=== PATIENT | male | born 1945 | race Caucasian/White ===

== ENCOUNTER 2016-11-24 10:36 | Observation (INO) | payer MEDICARE, OTHER ==
[~2016-11-24] VITALS: Ht 172.7 cm; Wt 115.7 kg
[2016-11-24] VITALS (12 sets, daily range): BP systolic 108–136; BP diastolic 59–76
[2016-11-24] MEDS: IV RINGERS,LACTATED 1000ML 1,000 ML IV SCH (11:29)
[2016-11-24 11:34] LABS: BASO # 0.1 x10^3/uL (0.0-0.2); BASO % 1 % (0-3); EOS % 3 % (0-3); HEMATOCRIT 45.7 % (39.0-53.0); HEMOGLOBIN 15.6 g/dL (13.0-17.5); LYMPH # 2.9 x10^3/uL (1.0-4.8); LYMPH % 33 % (24-48); MEAN CORPUSCULAR HEMOGLOBIN 31 pg (25-35); MEAN CORPUSCULAR HGB CONC 34 g/dL (31-37); MEAN CORPUSCULAR VOLUME 90 fL (79-100); MONO % 9 % (0-9); NEUT % 54 % (31-73); PLATELET COUNT 172 x10^3/uL (140-400); RED BLOOD COUNT 5.08 x10^6/uL (4.30-5.70); RED CELL DISTRIBUTION WIDTH 14.6 % (11.5-14.5); WHITE BLOOD COUNT 8.7 x10^3/uL (4.0-11.0)
[2016-11-24] MEDS ORDERED: PROPOFOL 20 ML IV ONE (11:34)
[2016-11-24] MEDS ORDERED: LIDOCAINE 2% PF Vial for OR 5 ML VIAL. ONE (11:35)
[2016-11-24] MEDS ORDERED: DEXAMETHASONE SOD PHOS 20 MG/5 ML VIAL. ONE (11:35)
[2016-11-24] MEDS ORDERED: ONDANSETRON PF 4 MG/2 ML VIAL. ONE (11:35)
[2016-11-24 11:46] LABS: INR 1.1 (0.8-1.1); PROTHROMBIN TIME PATIENT 13.1 SEC (11.7-14.0)
[2016-11-24 11:47] LABS: CALCIUM 9.1 mg/dL (8.5-10.1); CREATININE 0.9 mg/dL (0.7-1.3); GFR 83.2; POTASSIUM 4.3 mmol/L (3.5-5.1)
[2016-11-24] MEDS ORDERED: fentaNYL PF VIAL 100 MCG/2 ML VIAL ONE (12:04)
[2016-11-24] MEDS ORDERED: fentaNYL PF VIAL 100 MCG/2 ML VIAL IV PRN (12:15)
[2016-11-24] MEDS ORDERED: MORPHINE SULFATE 2 MG/ML DISP.SYRIN. IV PRN ×2 (12:15→13:45)
[2016-11-24] MEDS ORDERED: ONDANSETRON PF 4 MG/2 ML VIAL. IV PRN ×2 (12:15→13:45)
[2016-11-24] MEDS ORDERED: PROCHLORPERAZINE 10 MG/2 ML VIAL. IV PRN (12:15)
[2016-11-24] MEDS ORDERED: IV RINGERS,LACTATED 1000ML 1,000 ML IV SCH (12:15)
[2016-11-24] MEDS ORDERED: LIDOCAINE 1% 1 ML SYRINGE. ID PRN (12:15)
[2016-11-24] MEDS ORDERED: HYDROmorphone 2 MG/ML VIAL IV PRN (12:15)
[2016-11-24 12:16] LABS: BILIRUBIN,URINE NEGATIVE (NEG); GLUCOSE,URINE NEGATIVE (NEG); NITRITE,URINE NEGATIVE (NEG); PROTEIN,URINE NEGATIVE (NEG-TRACE); UROBILINOGEN,URINE 0.2 mg/dL (0.2 mg/dL)
[2016-11-24] MEDS ORDERED: ePHEDrine PF IN SALINE 50 MG/5 ML DISP.SYRIN IV ONE ×3 (12:44→14:28)
[2016-11-24 12:45] LABS: BACTERIA,URINE 0 /HPF (0-FEW); SQUAMOUS EPITHELIAL CELL,UR MOD /LPF
[2016-11-24] MEDS ORDERED: PHENYLEPHRINE in 0.9% NACL PF 1 MG/10 ML DISP.SYRIN. IV ONE (12:58)
[2016-11-24] MEDS ORDERED: SEVOFLURANE 31 TO 60 MINUTES. IH ONE (13:20)
[2016-11-24] MEDS ORDERED: NALOXONE 0.4 MG/ML VIAL. IV PRN (13:45)
[2016-11-24] MEDS ORDERED: diphenhydrAMINE HCL 25 MG CAPSULE PO PRN (13:45)
[2016-11-24] MEDS ORDERED: MAGNESIUM HYDROXIDE 2,400 MG/30 ML ORAL.SUSP. PO PRN (13:45)
[2016-11-24] MEDS ORDERED: 0.9 % SODIUM CHLORIDE 10 ML DISP.SYRIN. IV PRN (13:45)
[2016-11-24] MEDS ORDERED: ACETAMINOPHEN 325 MG TABLET. PO PRN (13:45)
[2016-11-24] MEDS ORDERED: MAG HYDROX/ALUMINUM HYD/SIMETH 30 ML ORAL.SUSP PO PRN (13:45)
--- NOTE | 2016-11-24 13:59 | PDOC ---
BRIEF OPERATIVE NOTE Date: November 24, 2016 Pre-Op Diagnosis BPH Post-Op Diagnosis BPH Procedure Performed Transurethral Resection of Prostate Surgeon Chito Anesthesia Type: General Blood Loss 100cc Specimens Obtained Prostate tissue sent to lab Findings same Complications none Additional Remarks Tolerated well Consult Hospitalist for medical management MARY ANNE PAREDES DO November 24, 2016 13:59
[2016-11-24] MEDS ORDERED: METO25TA9 PO (14:00)
[2016-11-24] MEDS ORDERED: INSU100I13 SQ (14:03)
[2016-11-24] MEDS: fentaNYL PF VIAL 100 MCG/2 ML VIAL IV PRN ×2 (14:29→14:44)
[2016-11-24] MEDS: POTASSIUM CL 20MEQ-0.45% NACL 1,000 ML IV SCH (15:00)
[2016-11-24] MEDS ORDERED: AMLO1CAP8 PO (15:20)
[2016-11-24] MEDS ORDERED: TAMS0.4C2 PO (15:20)
[2016-11-24] MEDS ORDERED: ESOM40CA PO (15:20)
[2016-11-24] MEDS ORDERED: METF-620 PO (15:20)
--- NOTE | 2016-11-24 15:58 | PDOC2 ---
CONSULT Date of Consult Date of Consult DATE: 11/24/16 TIME: 15:57 Reason for Consult Reason for Consult: DM / HTN Referring Physician Referring Physician: DR PAREDES Identification/Chief Complaint Chief Complaint POST SURGERY TURP History of Present Illness Reason for Visit: A 71 Male with hx of HTN, DM, BPH admitted to the hospital for Transurethral Resection of Prostate, IPC is asked to see for medical management. Pt denies any active complaints, pain 6/10, better with medications, no fever, no hematuria. He had urinary retention for long time, diagnosed with BPH. Past Medical History Cardiovascular: HTN Renal/: Other (BPH) Endocrine: Diabetes Past Surgical History Past Surgical History: Other (tURP) Family History Family History BROTHER- PROSTATE CANCER MOTHER A LIVE FATHER Social History No ALCOHOL: rare Current Medications Current Medications Current Medications Ringer's Solution 1,000 ml @ 75 mls/hr [id number] IV Last administered on t 11:29; Start 11/24/16 at 11:30 Propofol 20 ml @ As Directed STK-MED ONCE IV ; Start 11/24/16 at 11:34; Stop at 11:35; Status DC Lidocaine HCl (Lidocaine Pf 2% Vial) 5 ml STK-MED ONCE .ROUTE ; Start 11/24/16 at 11:35; Stop 11/24/16 at 11:36; Status DC Dexamethasone Sodium Phosphate (Decadron) 20 mg STK-MED ONCE .ROUTE ; Start at 11:35; Stop 11/24/16 at 11:36; Status DC Ondansetron HCl (Zofran) 4 mg STK-MED ONCE .ROUTE ; Start 11/24/16 at 11:35; Stop 11/24/16 at 11:36; Status DC Ceftriaxone Sodium 50 ml @ 100 mls/hr 1X PREOP PRN IV PER PROTOCOL; Start at 06:00; Stop 11/25/16 at 05:59 Ceftriaxone Sodium 50 ml @ As Directed STK-MED ONCE IV ; Start 11/24/16 at 11:47 ; Stop 11/24/16 at 11:48; Status DC Fentanyl Citrate (Fentanyl 2ml Vial) 100 mcg STK-MED ONCE .ROUTE ; Start at 12:04; Stop 11/24/16 at 12:05; Status DC Ondansetron HCl (Zofran) 4 mg PRN Q6HRS PRN IV NAUSEA/VOMITING; Start 11/24/16 at 12:15; Stop 11/25/16 at 12:14 Fentanyl Citrate (Fentanyl 2ml Vial) 25 mcg PRN Q5MIN PRN IV MILD PAIN; Start 11/24/16 at 12:15; Stop 11/25/16 at 12:14 Fentanyl Citrate (Fentanyl 2ml Vial) 50 mcg PRN Q5MIN PRN IV MODERATE PAIN Last administered on 11/24/16t 14:44; Start 11/24/16 at 12:15; Stop 11/25/16 at 12:14 Morphine Sulfate 1 mg PRN Q10MIN PRN IV SEVERE PAIN; Start 11/24/16 at 12:15; Stop 11/25/16 at 12:14 Ringer's Solution 1,000 ml @ 30 mls/hr Q24H IV ; Start 11/24/16 at 12:15; Stop 11/25/16 at 00:14 Lidocaine HCl 2 ml PRN 1X PRN ID PRIOR TO IV START; Start 11/24/16 at 12:15; Stop 11/25/16 at 12:14 Hydromorphone HCl (Dilaudid) 0.5 mg PRN Q10MIN PRN IV SEV PAIN, Second choice; Start 11/24/16 at 12:15; Stop 11/25/16 at 12:14 Prochlorperazine Edisylate (Compazine) 5 mg PACU PRN PRN IV NAUSEA, MRX1; Start 11/24/16 at 12:15; Stop 11/25/16 at 12:14 Ephedrine Sulfate 50 mg STK-MED ONCE IV ; Start 11/24/16 at 12:44; Stop at 12:45; Status DC Phenylephrine HCl 1 mg STK-MED ONCE IV ; Start 11/24/16 at 12:58; Stop 11/24/16 at 12:59; Status DC Sevoflurane (Ultane) 30 ml STK-MED ONCE IH ; Start 11/24/16 at 13:20; Stop 11/24 at 13:21; Status DC Ephedrine Sulfate 50 mg STK-MED ONCE IV ; Start 11/24/16 at 13:33; Stop at 13:34; Status DC Al Hydroxide/Mg Hydroxide (Mylanta Plus Xs) 30 ml PRN Q3HRS PRN PO HEARTBURN / GAS; Start 11/24/16 at 13:45 Diphenhydramine HCl (Benadryl) 25 mg PRN Q6HRS PRN PO ITCHING; Start 11/24/16 at 13:45 Naloxone HCl (Narcan) 0.1 mg PRN Q2MIN PRN IV SEE COMMENTS; Start 11/24/16 at 13:45 Sodium Chloride (Normal Saline Flush) 3 ml QSHIFT PRN IV AFTER MEDS AND BLOOD DRAWS; Start 11/24/16 at 13:45 Potassium Chloride/Sodium Chloride 1,000 ml @ 80 mls/hr [id number] IV ; Start at 15:00 Acetaminophen/ Hydrocodone Bitart (Lortab 5/325) 1 tab PRN Q4HRS PRN PO MILD PAIN; Start 11/24/16 at 13:45 Morphine Sulfate 1 mg PRN Q1HR PRN IV PAIN; Start 11/24/16 at 13:45 Acetaminophen (Tylenol) 650 mg PRN Q6HRS PRN PO Headaches, Temp > 101.5F; Start 11/24/16 at 13:45 Ondansetron HCl (Zofran) 4 mg PRN Q6HRS PRN IV NAUESA, 1ST CHOICE; Start at 13:45 Senna/Docusate Sodium (Senna Plus) 1 tab BID PO ; Start 11/24/16 at 21:00 Magnesium Hydroxide (Milk Of Magnesia) 2,400 mg PRN Q12HR PRN PO CONSTIPATION; Start 11/24/16 at 13:45 Ceftriaxone Sodium 1 gm/ Sodium Chloride 50 ml @ 100 mls/hr Q24H IV ; Start at 09:00 Ephedrine Sulfate 50 mg STK-MED ONCE IV ; Start 11/24/16 at 14:28; Stop at 14:29; Status DC Metformin HCl (Glucophage) 1,000 mg BIDWMEALS PO ; Start 11/24/16 at 17:00; Status UNV Metoprolol Succinate (Toprol Xl) 25 mg BID PO ; Start 11/24/16 at 21:00; Status UNV Tamsulosin HCl (Flomax) 0.4 mg HS PO ; Start 11/24/16 at 21:00; Status UNV Non-Formulary Medication 1 cap DAILY PO ; Start 11/25/16 at 09:00; Status UNV Non-Formulary Medication 1 cap BID PO ; Start 11/24/16 at 21:00; Status UNV Non-Formulary Medication 10 unit QHS SQ ; Start 11/24/16 at 21:00; Status UNV Active Scripts Active Reported Tamsulosin Hcl 0.4 Mg Cap.er.24h 0.4 Mg PO HS Metformin Hcl 1,000 Mg Tablet 1,000 Mg PO BIDWMEALS Amlodipine-Benazepril 5-10 Mg (Amlodipine Besylate/Benazepril) 1 Each Capsule 1 Cap PO DAILY Nexium Capsule (Esomeprazole Magnesium) 40 Mg Capsule.dr 1 Cap PO BID Lantus Solostar (Insulin Glargine,Hum.rec.anlog) 100 Unit/1 Ml Insuln.pen 10 Unit SQ QHS Metoprolol Succinate ( Xl ) (Metoprolol Succinate) 25 Mg Tab.er.24h 25 Mg PO BID Allergies Allergies: Coded Allergies: Sulfa (Sulfonamide Antibiotics) (Verified Allergy, Severe, MARINA SP SYNDROME, 11/14/16) ampicillin (Verified Allergy, Severe, MARINA SP SYNDROME, 11/14/16) trimethoprim (Verified Allergy, Severe, MARINA SP SYNDROME, 11/14/16) cephalexin (Verified Allergy, Intermediate, 11/24/16) ciprofloxacin (Verified Allergy, Intermediate, MARINA SP SYNDROME, 11/14/16) sulfamethoxazole (Verified Allergy, Intermediate, STVEN SP SYNDROME, 11/14/16) ROS Review of System CONSTITUTIONAL: No fever or chills EYES: No recent changes SKIN: No rash or itching CARDIOVASCULAR: No chest pain, syncope, palpitations, or edema RESPIRATORY: No SOB or cough GASTROINTESTINAL: No nausea, vomiting or abdominal pain NEUROLOGICAL: No headaches or weakness ENDOCRINE: No cold or heat intolerance GENITOURINARY: RETENTION OF URINE MUSCULOSKELETAL: No back pain or joint pain LYMPHATICS: No enlarged lymph nodes PSYCHIATRIC: No anxiety or depression Physical Exam Physical Exam GENERAL: No apparent distress. Alert and oriented. HEENT: Head normocephalic, atraumatic. NECK: Supple LUNGS: Clear to auscultation. HEART: RRR, S1, S2 present, pulses intact ABDOMEN: Soft, positive bowel sounds. EXTREMITIES: No cyanosis or edema. NEUROLOGIC: Normal speech, normal tone PSYCHIATRIC: Normal affect, normal mood. SKIN: No ulceration. Vitals VITALS Vital Signs Date Time Temp Pulse Resp B/P (MAP) Pulse Ox O2 Delivery O2 Flow Rate FiO2 11/24/16 14:44 2 Room Air 11/24/16 14:29 94 2.0 11/24/16 14:28 97.4 96 116/51 97.4 Labs Labs Laboratory Tests Test 11/24/16 11:20 11/24/16 12:00 11/24/16 14:01 White Blood Count 8.7 x10^3/uL (4.0-11.0) Red Blood Count 5.08 x10^6/uL (4.30-5.70) Hemoglobin 15.6 g/dL (13.0-17.5) Hematocrit 45.7 % (39.0-53.0) Mean Corpuscular Volume 90 fL (79-100) Mean Corpuscular Hemoglobin 31 pg (25-35) Mean Corpuscular Hemoglobin Concent 34 g/dL (31-37) Red Cell Distribution Width 14.6 % (11.5-14.5) Platelet Count 172 x10^3/uL (140-400) Neutrophils (%) (Auto) 54 % (31-73) Lymphocytes (%) (Auto) 33 % (24-48) Monocytes (%) (Auto) 9 % (0-9) Eosinophils (%) (Auto) 3 % (0-3) Basophils (%) (Auto) 1 % (0-3) Neutrophils # (Auto) 4.7 x10^3uL (1.8-7.7) Lymphocytes # (Auto) 2.9 x10^3/uL (1.0-4.8) Monocytes # (Auto) 0.7 x10^3/uL (0.0-1.1) Eosinophils # (Auto) 0.2 x10^3/uL (0.0-0.7) Basophils # (Auto) 0.1 x10^3/uL (0.0-0.2) Prothrombin Time 13.1 SEC (11.7-14.0) Prothromb Time International Ratio 1.1 (0.8-1.1) Activated Partial Thromboplast Time 32 SEC (24-38) Sodium Level 141 mmol/L (136-145) Potassium Level 4.3 mmol/L (3.5-5.1) Chloride Level 103 mmol/L (98-107) Carbon Dioxide Level 28 mmol/L (21-32) Anion Gap 10 (6-14) Blood Urea Nitrogen 16 mg/dL (8-26) Creatinine 0.9 mg/dL (0.7-1.3) Estimated GFR (Cockcroft-Gault) 83.2 Glucose Level 122 mg/dL (70-99) Calcium Level 9.1 mg/dL (8.5-10.1) Urine Collection Type Unknown Urine Color Yellow Urine Clarity Clear Urine pH 6.0 Urine Specific [place] 1.010 Urine Protein Negative mg/dL (NEG-TRACE) Urine Glucose (UA) Negative mg/dL (NEG) Urine Ketones (Stick) Negative mg/dL (NEG) Urine Blood Negative (NEG) Urine Nitrite Negative (NEG) Urine Bilirubin Negative (NEG) Urine Urobilinogen Dipstick 0.2 mg/dL (0.2 mg/dL) Urine Leukocyte Esterase Trace (NEG) Urine RBC 1-2 /HPF (0-2) Urine WBC 1-4 /HPF (0-4) Urine Squamous Epithelial Cells Mod /LPF Urine Bacteria 0 /HPF (0-FEW) Glucose (Fingerstick) 124 mg/dL (70-99) Laboratory Tests Test 11/24/16 11:20 11/24/16 12:00 11/24/16 14:01 White Blood Count 8.7 x10^3/uL (4.0-11.0) Red Blood Count 5.08 x10^6/uL (4.30-5.70) Hemoglobin 15.6 g/dL (13.0-17.5) Hematocrit 45.7 % (39.0-53.0) Mean Corpuscular Volume 90 fL (79-100) Mean Corpuscular Hemoglobin 31 pg (25-35) Mean Corpuscular Hemoglobin Concent 34 g/dL (31-37) Red Cell Distribution Width 14.6 % (11.5-14.5) Platelet Count 172 x10^3/uL (140-400) Neutrophils (%) (Auto) 54 % (31-73) Lymphocytes (%) (Auto) 33 % (24-48) Monocytes (%) (Auto) 9 % (0-9) Eosinophils (%) (Auto) 3 % (0-3) Basophils (%) (Auto) 1 % (0-3) Neutrophils # (Auto) 4.7 x10^3uL (1.8-7.7) Lymphocytes # (Auto) 2.9 x10^3/uL (1.0-4.8) Monocytes # (Auto) 0.7 x10^3/uL (0.0-1.1) Eosinophils # (Auto) 0.2 x10^3/uL (0.0-0.7) Basophils # (Auto) 0.1 x10^3/uL (0.0-0.2) Prothrombin Time 13.1 SEC (11.7-14.0) Prothromb Time International Ratio 1.1 (0.8-1.1) Activated Partial Thromboplast Time 32 SEC (24-38) Sodium Level 141 mmol/L (136-145) Potassium Level 4.3 mmol/L (3.5-5.1) Chloride Level 103 mmol/L (98-107) Carbon Dioxide Level 28 mmol/L (21-32) Anion Gap 10 (6-14) Blood Urea Nitrogen 16 mg/dL (8-26) Creatinine 0.9 mg/dL (0.7-1.3) Estimated GFR (Cockcroft-Gault) 83.2 Glucose Level 122 mg/dL (70-99) Calcium Level 9.1 mg/dL (8.5-10.1) Urine Collection Type Unknown Urine Color Yellow Urine Clarity Clear Urine pH 6.0 Urine Specific [place] 1.010 Urine Protein Negative mg/dL (NEG-TRACE) Urine Glucose (UA) Negative mg/dL (NEG) Urine Ketones (Stick) Negative mg/dL (NEG) Urine Blood Negative (NEG) Urine Nitrite Negative (NEG) Urine Bilirubin Negative (NEG) Urine Urobilinogen Dipstick 0.2 mg/dL (0.2 mg/dL) Urine Leukocyte Esterase Trace (NEG) Urine RBC 1-2 /HPF (0-2) Urine WBC 1-4 /HPF (0-4) Urine Squamous Epithelial Cells Mod /LPF Urine Bacteria 0 /HPF (0-FEW) Glucose (Fingerstick) 124 mg/dL (70-99) Assessment/Plan Assessment/Plan BPH s/p Transurethral Resection of Prostate HTN DM 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 continue current care IV Rocephin IV hydration SSI for hyperglycemia Post surgical care. labs reviwed, Aguilar catheter DC plans based on Urology input LOBO MORRIS MD November 24, 2016 15:57
[2016-11-24] MEDS ORDERED: DEXTROSE 50% 25 GM / 50ML DISP.SYRIN. IV PRN (16:00)
[2016-11-24] MEDS: PANTOPRAZOLE 40 MG TABLET.DR. PO SCH (16:30)
[2016-11-24] MEDS: INSULIN ASPART 300 UNITS/3 ML INSULN.PEN SQ SCH (17:31)
--- NOTE | 2016-11-24 19:10 | OP ---
DATE OF SURGERY: 11/24/2016 PREOPERATIVE DIAGNOSIS: Benign prostatic hyperplasia, difficulty voiding. POSTOPERATIVE DIAGNOSIS: Benign prostatic hyperplasia, difficulty voiding. PROCEDURE: Cystoscopy, transurethral resection of prostate. SURGEON: Mary Anne Dale DO. ANESTHESIA: General. ESTIMATED BLOOD LOSS: Less than 100 mL. DRAINS: A 22-Guy[place] 3-way Aguilar catheter to continuous bladder irrigation. INDICATIONS AND JUDGMENT: This is a 71-year-old male who was experiencing severe nocturia and urinary frequency in spite of medical therapy. He underwent cystoscopy in the office, was found to have an obstructing prostate gland. Treatment options were explained to the patient and it was his decision to proceed with transurethral resection of the prostate. DESCRIPTION OF PROCEDURE: The patient was preloaded with 1 gram of Rocephin. He was taken to the operating room and placed on the operating room table in a supine position. He was given a general anesthetic and then placed in a dorsolithotomy position using Brenden stirrups. He was prepped and draped. Rigid cystoscopy was performed. The urethra was normal course and caliber. Prostate fossa was visualized. He has a 25 gram prostate trilobar hyperplasia with visual obstruction of bladder outlet. The scope was advanced into the bladder. The bladder was carefully examined. There was no evidence of tumor calculi. He had mild bladder wall trabeculation. The ureteral orifices were normal bilaterally. A 24-Guyanese resectoscope sheath was then introduced into the urethra and into the bladder using a Cesar obturator. Following that an Best resectoscope was utilized. Prostate resection was begun at the bladder neck and the adenomatous tissue was resected down to the capsular fibers of the prostate in a circumferential manner. Bleeding vessels were coagulated with a resectoscope loop. The resectoscope was then moved to mid prostate fossa and using the same technique, the adenomatous tissue was resected down to the capsular fibers of the prostate in a circumferential manner. Bleeding vessels were coagulated with resectoscope loop. The third and final stage of the resection was carried out at the apex. Careful attention directed to the external sphincter into the verumontanum. This was not to harm these structures. The adenomatous tissue was then resected down to the capsular fibers of the prostate. I then opened the bladder neck. Using a Addison knife and incision was made the 7 o'clock and 4 o'clock positions opening the bladder neck. This opened the prostatic fossa satisfactorily. Most of the adenomatous obstructing tissue had been resected. The prostate chips were removed from the bladder using Valeria evacuator. Hemostasis was satisfactory. Therefore, the instruments were removed. Then, a well lubricated 22-Guyanese 3-way Aguilar catheter was advanced into the urethra and into the bladder. The 20 mL balloon was filled and this was connected to continuous bladder irrigation. The patient tolerated the procedure well and was sent to recovery room in satisfactory condition with his Aguilar catheter connected to continuous bladder irrigation. MARY ANNE DALE DO DR: Rik JOB#: [id number] / [id number]
[2016-11-24] MEDS: SENNOSIDES/DOCUSATE 8.6/50MG TABLET. PO SCH (20:56)
[2016-11-24] MEDS: METOPROLOL SUCC 24HR ER 25 MG TAB.ER.24H. PO SCH (20:58)
[2016-11-24] MEDS ORDERED: TAMSULOSIN 0.4 MG CAP.ER.24H. PO SCH (21:00)
[2016-11-24] MEDS ORDERED: INSULIN DETEMIR 300 UNITS/3 ML INSULN.PEN. SQ SCH ×2 (21:00)
[2016-11-25] MEDS: IV RINGERS,LACTATED 1000ML 1,000 ML IV SCH (00:50)
[2016-11-25] MEDS: POTASSIUM CL 20MEQ-0.45% NACL 1,000 ML IV SCH (02:06)
[2016-11-25] MEDS: HYDROcodone/APAP 5/325MG 1 TAB TABLET PO PRN ×3 (02:06→12:35)
[2016-11-25 03:36] VITALS: BP 115/59
[2016-11-25 04:12] LABS: BASO # 0.1 x10^3/uL (0.0-0.2); BASO % 1 % (0-3); EOS % 1 % (0-3); HEMATOCRIT 44.5 % (39.0-53.0); HEMOGLOBIN 14.7 g/dL (13.0-17.5); LYMPH # 1.6 x10^3/uL (1.0-4.8); LYMPH % 15 % (24-48); MEAN CORPUSCULAR HEMOGLOBIN 30 pg (25-35); MEAN CORPUSCULAR HGB CONC 33 g/dL (31-37); MEAN CORPUSCULAR VOLUME 92 fL (79-100); MONO % 6 % (0-9); NEUT % 78 % (31-73); PLATELET COUNT 162 x10^3/uL (140-400); RED BLOOD COUNT 4.83 x10^6/uL (4.30-5.70); RED CELL DISTRIBUTION WIDTH 14.7 % (11.5-14.5)
[2016-11-25 04:36] LABS: CALCIUM 8.6 mg/dL (8.5-10.1); CREATININE 0.9 mg/dL (0.7-1.3); GFR 83.2; POTASSIUM 4.8 mmol/L (3.5-5.1)
[2016-11-25 07:00] VITALS: BP 121/60
[2016-11-25] MEDS: PANTOPRAZOLE 40 MG TABLET.DR. PO SCH ×2 (07:20→16:19)
[2016-11-25] MEDS: INSULIN ASPART 300 UNITS/3 ML INSULN.PEN SQ SCH ×2 (08:00→13:04)
[2016-11-25] MEDS: SENNOSIDES/DOCUSATE 8.6/50MG TABLET. PO SCH (08:28)
[2016-11-25] MEDS: METOPROLOL SUCC 24HR ER 25 MG TAB.ER.24H. PO SCH (08:31)
[2016-11-25] MEDS ORDERED: amLODIPine BESYLATE 5 MG TABLET PO SCH (09:00)
[2016-11-25 11:00] VITALS: BP 126/62
--- NOTE | 2016-11-25 13:15 | PDOC ---
Provider Note Provider Note Urology POD# 1 No complaints, vitals and lab are good Urine mostly ul today Plan: catheter removed, patient placed on 6 bottle routine will monitor voiding and urine color to make decision if he can go home later today. Has some bleeding from distal urethra from stricture that was dilated at time of surgery which should stop with some mild pressure. MARY ANNE PAREDES DO November 25, 2016 13:15
--- NOTE | 2016-11-25 14:00 | PDOC ---
PROGRESS NOTES Chief Complaint Chief Complaint BPH s/p Transurethral Resection of Prostate HTN DM Insulin dependant History of Present Illness History of Present Illness CBI pain control continue current care IV hydration SSI for hyperglycemia DC plans Urology Vitals Vitals Vital Signs Date Time Temp Pulse Resp B/P (MAP) Pulse Ox O2 Delivery O2 Flow Rate FiO2 11/25/16 12:35 Room Air 11/25/16 11:00 97.7 71 20 126/62 (83) 95 97.7 11/24/16 19:05 2.0 Physical Exam General: Alert, Oriented X3, Cooperative, No acute distress Heart: Regular rate, No murmurs Lungs: Clear Abdomen: Normal bowel sounds, Soft Extremities: No clubbing, No cyanosis Skin: No rashes, No breakdown Labs LABS Laboratory Tests Test 11/24/16 14:01 11/24/16 16:13 11/24/16 20:52 11/25/16 03:59 Glucose (Fingerstick) 124 mg/dL (70-99) 166 mg/dL (70-99) 229 mg/dL (70-99) White Blood Count 11.0 x10^3/uL (4.0-11.0) Red Blood Count 4.83 x10^6/uL (4.30-5.70) Hemoglobin 14.7 g/dL (13.0-17.5) Hematocrit 44.5 % (39.0-53.0) Mean Corpuscular Volume 92 fL (79-100) Mean Corpuscular Hemoglobin 30 pg (25-35) Mean Corpuscular Hemoglobin Concent 33 g/dL (31-37) Red Cell Distribution Width 14.7 % (11.5-14.5) Platelet Count 162 x10^3/uL (140-400) Neutrophils (%) (Auto) 78 % (31-73) Lymphocytes (%) (Auto) 15 % (24-48) Monocytes (%) (Auto) 6 % (0-9) Eosinophils (%) (Auto) 1 % (0-3) Basophils (%) (Auto) 1 % (0-3) Neutrophils # (Auto) 8.6 x10^3uL (1.8-7.7) Lymphocytes # (Auto) 1.6 x10^3/uL (1.0-4.8) Monocytes # (Auto) 0.7 x10^3/uL (0.0-1.1) Eosinophils # (Auto) 0.1 x10^3/uL (0.0-0.7) Basophils # (Auto) 0.1 x10^3/uL (0.0-0.2) Sodium Level 138 mmol/L (136-145) Potassium Level 4.8 mmol/L (3.5-5.1) Chloride Level 104 mmol/L (98-107) Carbon Dioxide Level 23 mmol/L (21-32) Anion Gap 11 (6-14) Blood Urea Nitrogen 13 mg/dL (8-26) Creatinine 0.9 mg/dL (0.7-1.3) Estimated GFR (Cockcroft-Gault) 83.2 Glucose Level 188 mg/dL (70-99) Calcium Level 8.6 mg/dL (8.5-10.1) Test 11/25/16 07:47 11/25/16 11:32 Glucose (Fingerstick) 129 mg/dL (70-99) 152 mg/dL (70-99) Review of Systems Review of Systems no n.v.d Comment Review of Relevant I have reviewed the following items juliette (where applicable) has been applied. Labs Laboratory Tests Test 11/24/16 11:20 11/24/16 12:00 11/24/16 14:01 11/24/16 16:13 White Blood Count 8.7 x10^3/uL (4.0-11.0) Red Blood Count 5.08 x10^6/uL (4.30-5.70) Hemoglobin 15.6 g/dL (13.0-17.5) Hematocrit 45.7 % (39.0-53.0) Mean Corpuscular Volume 90 fL (79-100) Mean Corpuscular Hemoglobin 31 pg (25-35) Mean Corpuscular Hemoglobin Concent 34 g/dL (31-37) Red Cell Distribution Width 14.6 % (11.5-14.5) Platelet Count 172 x10^3/uL (140-400) Neutrophils (%) (Auto) 54 % (31-73) Lymphocytes (%) (Auto) 33 % (24-48) Monocytes (%) (Auto) 9 % (0-9) Eosinophils (%) (Auto) 3 % (0-3) Basophils (%) (Auto) 1 % (0-3) Neutrophils # (Auto) 4.7 x10^3uL (1.8-7.7) Lymphocytes # (Auto) 2.9 x10^3/uL (1.0-4.8) Monocytes # (Auto) 0.7 x10^3/uL (0.0-1.1) Eosinophils # (Auto) 0.2 x10^3/uL (0.0-0.7) Basophils # (Auto) 0.1 x10^3/uL (0.0-0.2) Prothrombin Time 13.1 SEC (11.7-14.0) Prothromb Time International Ratio 1.1 (0.8-1.1) Activated Partial Thromboplast Time 32 SEC (24-38) Sodium Level 141 mmol/L (136-145) Potassium Level 4.3 mmol/L (3.5-5.1) Chloride Level 103 mmol/L (98-107) Carbon Dioxide Level 28 mmol/L (21-32) Anion Gap 10 (6-14) Blood Urea Nitrogen 16 mg/dL (8-26) Creatinine 0.9 mg/dL (0.7-1.3) Estimated GFR (Cockcroft-Gault) 83.2 Glucose Level 122 mg/dL (70-99) Calcium Level 9.1 mg/dL (8.5-10.1) Urine Collection Type Unknown Urine Color Yellow Urine Clarity Clear Urine pH 6.0 Urine Specific [place] 1.010 Urine Protein Negative mg/dL (NEG-TRACE) Urine Glucose (UA) Negative mg/dL (NEG) Urine Ketones (Stick) Negative mg/dL (NEG) Urine Blood Negative (NEG) Urine Nitrite Negative (NEG) Urine Bilirubin Negative (NEG) Urine Urobilinogen Dipstick 0.2 mg/dL (0.2 mg/dL) Urine Leukocyte Esterase Trace (NEG) Urine RBC 1-2 /HPF (0-2) Urine WBC 1-4 /HPF (0-4) Urine Squamous Epithelial Cells Mod /LPF Urine Bacteria 0 /HPF (0-FEW) Glucose (Fingerstick) 124 mg/dL (70-99) 166 mg/dL (70-99) Test 11/24/16 20:52 11/25/16 03:59 11/25/16 07:47 11/25/16 11:32 Glucose (Fingerstick) 229 mg/dL (70-99) 129 mg/dL (70-99) 152 mg/dL (70-99) White Blood Count 11.0 x10^3/uL (4.0-11.0) Red Blood Count 4.83 x10^6/uL (4.30-5.70) Hemoglobin 14.7 g/dL (13.0-17.5) Hematocrit 44.5 % (39.0-53.0) Mean Corpuscular Volume 92 fL (79-100) Mean Corpuscular Hemoglobin 30 pg (25-35) Mean Corpuscular Hemoglobin Concent 33 g/dL (31-37) Red Cell Distribution Width 14.7 % (11.5-14.5) Platelet Count 162 x10^3/uL (140-400) Neutrophils (%) (Auto) 78 % (31-73) Lymphocytes (%) (Auto) 15 % (24-48) Monocytes (%) (Auto) 6 % (0-9) Eosinophils (%) (Auto) 1 % (0-3) Basophils (%) (Auto) 1 % (0-3) Neutrophils # (Auto) 8.6 x10^3uL (1.8-7.7) Lymphocytes # (Auto) 1.6 x10^3/uL (1.0-4.8) Monocytes # (Auto) 0.7 x10^3/uL (0.0-1.1) Eosinophils # (Auto) 0.1 x10^3/uL (0.0-0.7) Basophils # (Auto) 0.1 x10^3/uL (0.0-0.2) Sodium Level 138 mmol/L (136-145) Potassium Level 4.8 mmol/L (3.5-5.1) Chloride Level 104 mmol/L (98-107) Carbon Dioxide Level 23 mmol/L (21-32) Anion Gap 11 (6-14) Blood Urea Nitrogen 13 mg/dL (8-26) Creatinine 0.9 mg/dL (0.7-1.3) Estimated GFR (Cockcroft-Gault) 83.2 Glucose Level 188 mg/dL (70-99) Calcium Level 8.6 mg/dL (8.5-10.1) Laboratory Tests Test 11/24/16 14:01 11/24/16 16:13 11/24/16 20:52 11/25/16 03:59 Glucose (Fingerstick) 124 mg/dL (70-99) 166 mg/dL (70-99) 229 mg/dL (70-99) White Blood Count 11.0 x10^3/uL (4.0-11.0) Red Blood Count 4.83 x10^6/uL (4.30-5.70) Hemoglobin 14.7 g/dL (13.0-17.5) Hematocrit 44.5 % (39.0-53.0) Mean Corpuscular Volume 92 fL (79-100) Mean Corpuscular Hemoglobin 30 pg (25-35) Mean Corpuscular Hemoglobin Concent 33 g/dL (31-37) Red Cell Distribution Width 14.7 % (11.5-14.5) Platelet Count 162 x10^3/uL (140-400) Neutrophils (%) (Auto) 78 % (31-73) Lymphocytes (%) (Auto) 15 % (24-48) Monocytes (%) (Auto) 6 % (0-9) Eosinophils (%) (Auto) 1 % (0-3) Basophils (%) (Auto) 1 % (0-3) Neutrophils # (Auto) 8.6 x10^3uL (1.8-7.7) Lymphocytes # (Auto) 1.6 x10^3/uL (1.0-4.8) Monocytes # (Auto) 0.7 x10^3/uL (0.0-1.1) Eosinophils # (Auto) 0.1 x10^3/uL (0.0-0.7) Basophils # (Auto) 0.1 x10^3/uL (0.0-0.2) Sodium Level 138 mmol/L (136-145) Potassium Level 4.8 mmol/L (3.5-5.1) Chloride Level 104 mmol/L (98-107) Carbon Dioxide Level 23 mmol/L (21-32) Anion Gap 11 (6-14) Blood Urea Nitrogen 13 mg/dL (8-26) Creatinine 0.9 mg/dL (0.7-1.3) Estimated GFR (Cockcroft-Gault) 83.2 Glucose Level 188 mg/dL (70-99) Calcium Level 8.6 mg/dL (8.5-10.1) Test 11/25/16 07:47 11/25/16 11:32 Glucose (Fingerstick) 129 mg/dL (70-99) 152 mg/dL (70-99) Microbiology 11/24/16 Urine Culture - Preliminary, Resulted 11/24/16 Urine Culture Result 1 (KELTON) - Preliminary, Resulted Medications Current Medications Ringer's Solution 1,000 ml @ 75 mls/hr [id number] IV Last administered on t 11:29; Start 11/24/16 at 11:30 Propofol 20 ml @ As Directed STK-MED ONCE IV ; Start 11/24/16 at 11:34; Stop at 11:35; Status DC Lidocaine HCl (Lidocaine Pf 2% Vial) 5 ml STK-MED ONCE .ROUTE ; Start 11/24/16 at 11:35; Stop 11/24/16 at 11:36; Status DC Dexamethasone Sodium Phosphate (Decadron) 20 mg STK-MED ONCE .ROUTE ; Start at 11:35; Stop 11/24/16 at 11:36; Status DC Ondansetron HCl (Zofran) 4 mg STK-MED ONCE .ROUTE ; Start 11/24/16 at 11:35; Stop 11/24/16 at 11:36; Status DC Ceftriaxone Sodium 50 ml @ 100 mls/hr 1X PREOP PRN IV PER PROTOCOL; Start at 06:00; Stop 11/25/16 at 05:59; Status DC Ceftriaxone Sodium 50 ml @ As Directed STK-MED ONCE IV ; Start 11/24/16 at 11:47 ; Stop 11/24/16 at 11:48; Status DC Fentanyl Citrate (Fentanyl 2ml Vial) 100 mcg STK-MED ONCE .ROUTE ; Start at 12:04; Stop 11/24/16 at 12:05; Status DC Ondansetron HCl (Zofran) 4 mg PRN Q6HRS PRN IV NAUSEA/VOMITING; Start 11/24/16 at 12:15; Stop 11/25/16 at 12:14; Status DC Fentanyl Citrate (Fentanyl 2ml Vial) 25 mcg PRN Q5MIN PRN IV MILD PAIN; Start 11/24/16 at 12:15; Stop 11/25/16 at 12:14; Status DC Fentanyl Citrate (Fentanyl 2ml Vial) 50 mcg PRN Q5MIN PRN IV MODERATE PAIN Last administered on 11/24/16t 14:44; Start 11/24/16 at 12:15; Stop 11/25/16 at 12:14; Status DC Morphine Sulfate 1 mg PRN Q10MIN PRN IV SEVERE PAIN; Start 11/24/16 at 12:15; Stop 11/25/16 at 12:14; Status DC Ringer's Solution 1,000 ml @ 30 mls/hr Q24H IV ; Start 11/24/16 at 12:15; Stop 11/25/16 at 00:14; Status DC Lidocaine HCl 2 ml PRN 1X PRN ID PRIOR TO IV START; Start 11/24/16 at 12:15; Stop 11/25/16 at 12:14; Status DC Hydromorphone HCl (Dilaudid) 0.5 mg PRN Q10MIN PRN IV SEV PAIN, Second choice; Start 11/24/16 at 12:15; Stop 11/25/16 at 12:14; Status DC Prochlorperazine Edisylate (Compazine) 5 mg PACU PRN PRN IV NAUSEA, MRX1; Start 11/24/16 at 12:15; Stop 11/25/16 at 12:14; Status DC Ephedrine Sulfate 50 mg STK-MED ONCE IV ; Start 11/24/16 at 12:44; Stop at 12:45; Status DC Phenylephrine HCl 1 mg STK-MED ONCE IV ; Start 11/24/16 at 12:58; Stop 11/24/16 at 12:59; Status DC Sevoflurane (Ultane) 30 ml STK-MED ONCE IH ; Start 11/24/16 at 13:20; Stop 11/24 at 13:21; Status DC Ephedrine Sulfate 50 mg STK-MED ONCE IV ; Start 11/24/16 at 13:33; Stop at 13:34; Status DC Al Hydroxide/Mg Hydroxide (Mylanta Plus Xs) 30 ml PRN Q3HRS PRN PO HEARTBURN / GAS; Start 11/24/16 at 13:45 Diphenhydramine HCl (Benadryl) 25 mg PRN Q6HRS PRN PO ITCHING; Start 11/24/16 at 13:45 Naloxone HCl (Narcan) 0.1 mg PRN Q2MIN PRN IV SEE COMMENTS; Start 11/24/16 at 13:45 Sodium Chloride (Normal Saline Flush) 3 ml QSHIFT PRN IV AFTER MEDS AND BLOOD DRAWS; Start 11/24/16 at 13:45 Potassium Chloride/Sodium Chloride 1,000 ml @ 80 mls/hr [id number] IV Last administered on 11/25/16 02:06; Start 11/24/16 at 15:00 Acetaminophen/ Hydrocodone Bitart (Lortab 5/325) 1 tab PRN Q4HRS PRN PO MILD PAIN Last administered on 11/25/16 12:35; Start 11/24/16 at 13:45 Morphine Sulfate 1 mg PRN Q1HR PRN IV PAIN Last administered on 11/24/16 18:34 ; Start 11/24/16 at 13:45 Acetaminophen (Tylenol) 650 mg PRN Q6HRS PRN PO Headaches, Temp > 101.5F; Start 11/24/16 at 13:45 Ondansetron HCl (Zofran) 4 mg PRN Q6HRS PRN IV NAUESA, 1ST CHOICE; Start at 13:45 Senna/Docusate Sodium (Senna Plus) 1 tab BID PO Last administered on 11/25/16 08:28; Start 11/24/16 at 21:00 Magnesium Hydroxide (Milk Of Magnesia) 2,400 mg PRN Q12HR PRN PO CONSTIPATION; Start 11/24/16 at 13:45 Ceftriaxone Sodium 1 gm/ Sodium Chloride 50 ml @ 100 mls/hr Q24H IV Last administered on 11/25/16 08:34; Start 11/25/16 at 09:00 Ephedrine Sulfate 50 mg STK-MED ONCE IV ; Start 11/24/16 at 14:28; Stop at 14:29; Status DC Metformin HCl (Glucophage) 1,000 mg BIDWMEALS PO Last administered on 08:28; Start 11/24/16 at 17:00 Metoprolol Succinate (Toprol Xl) 25 mg BID PO Last administered on 11/25/16 08 :31; Start 11/24/16 at 21:00 Tamsulosin HCl (Flomax) 0.4 mg HS PO Last administered on 11/24/16 20:56; Start 11/24/16 at 21:00 Amlodipine Besylate (Norvasc) 5 mg DAILY PO Last administered on 11/25/16 08: 31; Start 11/25/16 at 09:00 Pantoprazole Sodium (Protonix) 40 mg BIDAC PO Last administered on 11/25/16 07 :20; Start 11/24/16 at 16:30 Insulin Detemir (Levemir) 10 units QHS SQ ; Start 11/24/16 at 21:00; Stop at 21:00; Status DC Insulin Aspart (NovoLOG) 0-7 UNITS TIDWMEALS SQ Last administered on 11/25/16 13:04; Start 11/24/16 at 17:00 Dextrose (Dextrose 50%-Water Syringe) 12.5 gm PRN Q15MIN PRN IV SEE COMMENTS; Start 11/24/16 at 16:00 Insulin Detemir (Levemir) 40 units QHS SQ Last administered on 11/24/16 21:00 ; Start 11/24/16 at 21:00 Active Scripts Active Reported Tamsulosin Hcl 0.4 Mg Cap.er.24h 0.4 Mg PO HS Metformin Hcl 1,000 Mg Tablet 1,000 Mg PO BIDWMEALS Amlodipine-Benazepril 5-10 Mg (Amlodipine Besylate/Benazepril) 1 Each Capsule 1 Cap PO DAILY Nexium Capsule (Esomeprazole Magnesium) 40 Mg Capsule.dr 1 Cap PO BID Lantus Solostar (Insulin Glargine,Hum.rec.anlog) 100 Unit/1 Ml Insuln.pen 40 Unit SQ QHS Metoprolol Succinate ( Xl ) (Metoprolol Succinate) 25 Mg Tab.er.24h 25 Mg PO BID Vitals/I & O Vital Sign - Last 24 Hours 11/24/16 11/24/16 11/24/16 11/24/16 14:13 14:26 14:28 14:29 Temp 99 97.4 99.0 97.4 Pulse 94 99 96 Resp 22 18 20 20 B/P (MAP) 123/47 116/51 Pulse Ox 94 94 94 94 O2 Delivery Nasal Cannula Room Air Nasal Cannula O2 Flow Rate 2 2.0 17 17 11/24/16 11/24/16 14:44 14:50 15:00 15:15 Temp 97.7 95.0 98.0 97.7 95.0 98.0 Pulse 91 95 99 Resp 2 20 20 20 B/P (MAP) 136/76 (96) 129/76 (93) 127/70 (89) Pulse Ox 93 94 92 O2 Delivery Room Air Nasal Cannula Nasal Cannula Nasal Cannula O2 Flow Rate 2.0 2.0 2.0 11/24/16 11/24/16 11/24/16 11/24/16 15:30 15:45 16:00 16:30 Temp 97.5 97.8 97.4 97.5 97.8 97.4 Pulse 91 99 89 88 Resp 20 20 20 20 B/P (MAP) 121/66 (84) 133/76 (95) 130/70 (90) 123/67 (85) Pulse Ox 94 94 93 94 O2 Delivery Nasal Cannula Nasal Cannula Nasal Cannula Nasal Cannula O2 Flow Rate 2.0 2.0 2.0 2.0 11/24/16 11/24/16 11/24/16 11/24/16 17:00 18:45 19:05 19:15 Temp 97.5 97.7 97.5 97.7 Pulse 100 94 91 99 Resp 20 20 20 18 B/P (MAP) 128/73 (91) 112/62 (79) 136/76 (96) 120/75 (90) Pulse Ox 93 94 93 92 O2 Delivery Nasal Cannula Nasal Cannula Nasal Cannula Room Air O2 Flow Rate 2.0 2.0 2.0 11/24/16 11/24/16 11/24/16 11/25/16 20:00 20:58 23:07 02:06 Temp 97.6 97.6 Pulse 99 89 Resp 18 18 B/P (MAP) 120/75 108/59 (75) Pulse Ox 93 O2 Delivery Room Air Room Air Room Air 11/25/16 11/25/16 11/25/16 11/25/16 03:36 07:00 08:30 08:31 Temp 98.2 96.8 98.2 96.8 Pulse 70 67 67 Resp 20 18 B/P (MAP) 115/59 (77) 121/60 (80) 121/60 Pulse Ox 92 94 O2 Delivery Room Air Room Air Room Air 11/25/16 11/25/16 11/25/16 08:31 11:00 12:35 Temp 97.7 97.7 Pulse 67 71 Resp 20 B/P (MAP) 121/60 126/62 (83) Pulse Ox 95 O2 Delivery Room Air Room Air Intake and Output 11/24/16 11/24/16 11/25/16 15:00 23:00 07:00 Intake Total 20 ml 240 ml 2200 ml Output Total 1350 ml 1250 ml 6400 ml Balance -1330 ml -1010 ml -4200 ml DELMI MARSH MD November 25, 2016 14:00
[2016-11-25 14:59] VITALS: BP 146/76
--- NOTE | 2016-11-25 16:56 | DISCH ---
DISCHARGE INSTRUCTIONS Condition on Discharge Condition on Discharge: Stable Activity After Discharge Activity Instructions for Disc: Avoid exertion Lifting Instructions after Dis: No heavy lifting Driving Instructions after Dis: No driving for 2 weeks Diet after Discharge Diet after Discharge: Regular Contacting the DRRobert after DC Call your doctor for: Concerns you may have Follow-Up Follow up with: Dr Paredes in 2 weeks MARY ANNE PAREDES DO November 25, 2016 16:56
--- NOTE | 2016-11-25 17:01 | PDOC ---
Provider Note Provider Note Urology: Discharge note POD #1 Voiding satisfactorily, wants to go home Path report pending Plan: Rx Doxycycline 100mg bid for 7 days Avoid Aspirin and similar products Drink 6-8 glasses of water per day no strenuous activity MARY ANNE PAREDES DO November 25, 2016 17:01
--- NOTE | 2016-11-25 23:23 | DS ---
DATE OF DISCHARGE: 11/25/2016 FINAL DIAGNOSES: 1. Benign prostatic hyperplasia. 2. Difficulty voiding. SECONDARY DIAGNOSES: 1. Type 2 diabetes. 2. Hypertension. This is a summary of the patient's hospital course. Well documented history and physical can be found within the body of the chart. Briefly, this 71-year-old male has a long history of BPH and difficulty voiding. He is on maximum medical therapy and continued to have problems. Treatment options were explained to the patient and it was his decision to proceed with a transurethral resection of the prostate. The patient was brought to the hospital on 11/24/2016. He underwent transurethral resection of the prostate under general anesthesia. He tolerated the procedure well. The blood loss was minimal. A 22-Irish 3-way Aguilar catheter was left in place at the conclusion of the procedure, this was connected to continuous bladder irrigation and the patient was placed in a 23-hour observation bed. Following morning, the patient's urine was almost completely clear. Therefore, it was decided to remove his catheter for a voiding trial. The patient voided satisfactorily throughout the day. He had some mild heme colored urine and a few small clots, but no difficulty voiding. It was felt therefore that he could be discharged on 11/25/2016 at 5:00 p.m. The patient was given discharge instructions with respect to diet and activity. He was given a prescription for doxycycline 100 mg p.o. b.i.d. for 5 days. He will resume his home medications except for aspirin. He is going to follow up with me in 2 weeks in the office. He appeared to understand these instructions and was discharged in satisfactory condition. MARY ANNE PAREDES DO DR: GUME/pedro JOB#: [id number] / [id number]
--- NOTE | 2016-11-28 15:25 | PATHOLOGY ---
PATHOLOGY REPORT * * * * * * * * FINAL DIAGNOSIS: Prostate tissue, transurethral resection: - Nodular glandular and stromal hyperplasia. - Chronic inflammation, focal. COMMENT: The entire specimen is submitted for histologic evaluation. There is no evidence of malignancy. REPORT ELECTRONICALLY SIGNED BY: Mikael Meza M.D. DATE/TIME: 11/28/2016 15:24 * * * * * * * * GROSS PATHOLOGY: Received in formalin labeled "Sierra Parsons, prostate rosa isela," is a 7 gram, 8.9 x 5.1 x 0.8 cm aggregate of multiple irregular segments of nodular sotomayor tissue. The specimen is submitted entirely in cassettes A1-A7. (KAH; 11/25/2016) INITIAL CPT CODE(S): A; 01367 Professional services performed [place] [address] Technical services performed by [facility] at [address] [place] [address]. SPECIMEN(S) RECEIVED: Kilo.José natarajan CLINICAL HISTORY: Elevated BPH PATIENT: SIERRA PARSONS /AGE: 802/21/1945 (Age: 71) PATIENT #: [id number] ALT CASE #: SPECIMEN COLLECTION DATE: 11/24/2016 SPECIMEN RECEIVED DATE: 11/24/2016 [facility] - [address] [place] [address] - PHONE: [phone] * * * END OF REPORT * * *
== END 2016-11-25 18:00 | disposition home or self-care (01) ==
LOC: SURG 10:36 → 4 NORTH 14:05
PROVIDERS: ADMIT Urology; ATTEND Urology
DX: N40.1 Benign prostatic hyperplasia with lower urinary tract symptoms (principal); E11.9 Type 2 diabetes mellitus without complications; I10 Essential (primary) hypertension; Z90.79 Acquired absence of other genital organ(s)
CPT/HCPCS: 36415; 52450; 80048; 81001; 82947; 85027; 85610; 85730; 87086; 96365; 96366; 96372; 96375; G0378; G0379; J0690; J0696; J1100; J1815; J2270; J2370; J2405; J2704; J3010